=== PATIENT | female | born 1955 | race Caucasian/White ===

== ENCOUNTER 2022-12-03 08:19 | Inpatient (IN) | payer MEDICARE, MEDICAID ==
[2022-12-01 09:04] LABS: Urine WBC None Seen /hpf (0 - 5)
[2022-12-01 09:32] LABS: Basophils # (auto) 0.1 10 ^3/uL (0-0.2); Basophils % (auto) 1.2 % (0.0-2.0); Eosinophils # (auto) 0.3 10 ^3/uL (0-0.8); Eosinophils % (auto) 3.7 % (0.0-7.0); Hematocrit 37.3 % (36.0-46.0); Hemoglobin 12.7 g/dL (12.2-16.2); Lymphocytes # (auto) 1.8 10 ^3/uL (0.4-5.4); Lymphocytes % (auto) 26.1 % (10.0-50.0); Mean Corpuscular Hemoglobin 28.4 pg (28.0-32.0); Mean Corpuscular Hgb Conc. 34.2 g/dL (32.0-36.0); Mean Corpuscular Volume 83.1 fL (80.0-100.0); Monocytes # (auto) 0.4 10 ^3/uL (0-1.3); Monocytes % (auto) 6.1 % (0.0-12.0); Neutrophils # (auto) 4.3 10 ^3/uL (1.6-8.6); Neutrophils % (auto) 62.9 % (37.0-80.0); Nucleated Red Blood Cells % 0.1 %; Red Blood Cells 4.48 10^6/uL (4.0-5.20); Red Cell Distribution Width 13.3 % (11.8-14.3); White Blood Cell 6.9 10^3/uL (4.4-10.8)
[2022-12-01 09:34] LABS: Urine Bacteria NONE SEEN /hpf (None Seen); Urine Blood Negative /uL (Negative); Urine Specific Gravity 1.008 (1.001-1.035)
[2022-12-01 09:39] LABS: INR 0.97 (0.9-1.15); Partial Thromboplastin Time 28.5 sec (24.6-33.4)
[2022-12-01 10:02] LABS: Potassium 3.8 mmol/L (3.5-5.1)
[2022-12-01 10:24] LABS: Albumin 3.8 g/dL (3.4-5.0); BUN/Creatinine Ratio 11.6 (10.0-20.0); Bilirubin, Total 0.4 mg/dL (0.2-1.0); Calcium 8.8 mg/dL (8.5-10.1); Total Protein 7.3 g/dL (6.4-8.2)
[~2022-12-03] VITALS: Ht 154.9 cm; Wt 87.2 kg
[~2022-12-03 08:19] MED LIST: AMLO-496 PO; ATO40T PO; CALC667C5 PO; CHOL200021 PO; FAMO-68 PO; LOSA-39 PO; METF-489 PO; PANT40TA2 PO; VENL37.588 PO
[2022-12-03] MEDS ORDERED: ceFAZolin 1GM/50ML 100 ML IV ONE (08:28)
[2022-12-03] MEDS ORDERED: MIDAZOLAM HCL 2MG/2ML 2ml VIAL (1mg/ml) ONE (12:25)
[2022-12-03] MEDS ORDERED: HYDROmorphone HCL 2 MG/ML VL/or syr ONE (12:25)
[2022-12-03] MEDS ORDERED: fentaNYL CITRATE 100 MCG/2 ML VL ONE (12:25)
[2022-12-03] MEDS ORDERED: PROPOFOL 10 MG/ML 20 ML IV ONE (13:17)
[2022-12-03] MEDS ORDERED: SUGAMMADEX 200mg/2ml Vial (100MG/ML) IV ONE (13:58)
[2022-12-03] MEDS ORDERED: NITROGLYCERIN 0.4 MG SL TAB SL PRN (15:00)
[2022-12-03] MEDS ORDERED: ONDANSETRON HCL 4 MG/2 ML VIAL IV PRN ×2 (15:00→15:45)
[2022-12-03] MEDS ORDERED: ACETAMINOPHEN 325 MG TAB PO PRN (15:00)
[2022-12-03] MEDS ORDERED: MORPHINE SULFATE INJ 2 MG/ml SYRG IV PRN (15:00)
[2022-12-03] MEDS ORDERED: MORPHINE SULFATE 4 MG/ML SYR/VIAL IV PRN (15:45)
[2022-12-03] MEDS ORDERED: LABETALOL HCL 5 MG/ML 4ML SYRINGE IV PRN (15:45)
[2022-12-03] MEDS ORDERED: HYDROmorphone HCL 2 MG/ML VL/or syr IV PRN (15:45)
[2022-12-03] MEDS ORDERED: ePHEDrine SULFATE 50 MG/ML AMP IV PRN (15:45)
[2022-12-03] MEDS ORDERED: MIDAZOLAM HCL 2MG/2ML 2ml VIAL (1mg/ml) IV PRN (15:45)
[2022-12-03] MEDS ORDERED: HYDROcodone-ACET 10/325MG TAB PO ONE (16:45)
[2022-12-03] MEDS ORDERED: HYDROmorphone HCL 2 MG/ML VL/or syr IV ONE (16:45)
[2022-12-03] MEDS: D5W/SOD CHLO 0.9% 1,000 ML IV SCH (20:39)
[2022-12-03] MEDS: MORPHINE SULFATE INJ 2 MG/ml SYRG IV PRN (20:45)
[2022-12-03] MEDS: DOCUSATE SOD 100 MG CAP PO SCH (20:46)
[2022-12-03] MEDS: ceFAZolin 1GM/50ML 50 ML IV SCH ×2 (21:17→23:00)
[2022-12-03 22:00] VITALS: BP 125/76
[2022-12-03] MEDS: CYCLOBENZAPRINE HCL 10 MG TAB PO SCH (23:36)
[2022-12-04] MEDS: D5W/SOD CHLO 0.9% 1,000 ML IV SCH ×2 (01:00→05:00)
[2022-12-04] MEDS: MORPHINE SULFATE INJ 2 MG/ml SYRG IV PRN ×4 (01:20→21:59)
[2022-12-04 05:00] VITALS: BP 129/76
[2022-12-04] MEDS ORDERED: ceFAZolin 1GM/50ML 50 ML IV SCH (05:00)
[2022-12-04] MEDS: CYCLOBENZAPRINE HCL 10 MG TAB PO SCH ×3 (05:01→21:49)
[2022-12-04 09:00] VITALS: BP 132/81
[2022-12-04] MEDS: DOCUSATE SOD 100 MG CAP PO SCH ×2 (09:27→21:48)
[2022-12-04 13:00] VITALS: BP 164/80
[2022-12-04 17:00] VITALS: BP 158/76
[2022-12-04] MEDS: metFORMIN HYDROCHLORIDE 500 MG TAB PO SCH (17:57)
[2022-12-04] MEDS: ATORVASTATIN 20 MG TAB PO SCH (21:48)
[2022-12-04] MEDS: VENLAFAXINE HCL 37.5MG TABLET PO SCH (21:49)
[2022-12-04] MEDS: FAMOTIDINE 20 MG TAB PO SCH (21:50)
[2022-12-04 21:55] VITALS: BP 134/73
[2022-12-04] MEDS ORDERED: CALCIUM ACETATE 667 MG CAP PO SCH (22:00)
[2022-12-05] MEDS: MORPHINE SULFATE INJ 2 MG/ml SYRG IV PRN ×2 (02:42→11:18)
[2022-12-05 05:00] VITALS: BP 150/78
[2022-12-05] MEDS: CYCLOBENZAPRINE HCL 10 MG TAB PO SCH ×3 (05:03→21:02)
[2022-12-05] MEDS: metFORMIN HYDROCHLORIDE 500 MG TAB PO SCH ×2 (07:46→07:48)
[2022-12-05 09:00] VITALS: BP 137/75
[2022-12-05] MEDS ORDERED: PANTOPRAZOLE 40 MG TAB PO SCH (10:00)
[2022-12-05] MEDS: VENLAFAXINE HCL 37.5MG TABLET PO SCH ×2 (11:16→21:01)
[2022-12-05] MEDS: DOCUSATE SOD 100 MG CAP PO SCH ×2 (11:17→21:01)
[2022-12-05] MEDS: amLODIPine BESYLATE 5 MG TAB PO SCH (11:19)
[2022-12-05] MEDS: LOSARTAN POTASSIUM 50 MG TAB PO SCH (11:19)
[2022-12-05 13:00] VITALS: BP 145/74
[2022-12-05] MEDS: HYDROcodone-ACET 10/325MG TAB PO PRN (16:03)
[2022-12-05 17:04] VITALS: BP 136/81
[2022-12-05] MEDS: ATORVASTATIN 20 MG TAB PO SCH (21:01)
[2022-12-05] MEDS: FAMOTIDINE 20 MG TAB PO SCH (21:02)
[2022-12-05 22:00] VITALS: BP 118/73
[2022-12-06] MEDS: HYDROcodone-ACET 10/325MG TAB PO PRN ×3 (00:28→13:59)
[2022-12-06] MEDS: MORPHINE SULFATE INJ 2 MG/ml SYRG IV PRN (02:32)
[2022-12-06 05:00] VITALS: BP 119/73
[2022-12-06] MEDS: CYCLOBENZAPRINE HCL 10 MG TAB PO SCH ×2 (05:30→13:58)
[2022-12-06 09:23] VITALS: BP 114/75
[2022-12-06] MEDS: VENLAFAXINE HCL 37.5MG TABLET PO SCH (09:36)
[2022-12-06] MEDS: DOCUSATE SOD 100 MG CAP PO SCH (09:36)
[2022-12-06] MEDS: amLODIPine BESYLATE 5 MG TAB PO SCH (09:37)
[2022-12-06] MEDS: LOSARTAN POTASSIUM 50 MG TAB PO SCH (09:37)
[2022-12-06] MEDS: metFORMIN HYDROCHLORIDE 500 MG TAB PO SCH ×2 (09:38→18:00)
[2022-12-06] MEDS ORDERED: POLYETHYLENE GLYCOL 17 GM PWDR PO PRN (10:30)
[2022-12-06 13:00] VITALS: BP 102/65
[2022-12-06 15:45] VITALS: BP 102/65
[2022-12-06 17:12] VITALS: BP 98/67
== END 2022-12-06 17:00 | disposition home health service (06) | DRG 455 ==
LOC: SUR 08:19 → TELE 14:54 → TELE-WESTW 19:17
PROVIDERS: ADMIT Orthopaedic Surgery; ATTEND Family Medicine
PROC: 01NB0ZZ Release Lumbar Nerve, Open Approach (ICD-10-PCS; principal; 2022-12-05)
PROC: 0SG00AJ Fusion of Lumbar Vertebral Joint with Interbody Fusion Device, Posterior Approach, Anterior Column, Open Approach (ICD-10-PCS; 2022-12-05)
PROC: 4A11X4G Monitoring of Peripheral Nervous Electrical Activity, Intraoperative, External Approach (ICD-10-PCS; 2022-12-05)
PROC: 0SG0071 Fusion of Lumbar Vertebral Joint with Autologous Tissue Substitute, Posterior Approach, Posterior Column, Open Approach (ICD-10-PCS; 2022-12-05)
PROC: 00NY0ZZ Release Lumbar Spinal Cord, Open Approach (ICD-10-PCS; 2022-12-05)
DX: M48.062 Spinal stenosis, lumbar region with neurogenic claudication (principal); M51.16 Intervertebral disc disorders with radiculopathy, lumbar region; Z20.822 Contact with and (suspected) exposure to COVID-19; I10 Essential (primary) hypertension; F32.A Depression, unspecified; F41.9 Anxiety disorder, unspecified; E78.5 Hyperlipidemia, unspecified; K21.9 Gastro-esophageal reflux disease without esophagitis; E11.9 Type 2 diabetes mellitus without complications; E66.9 Obesity, unspecified; Z68.36 Body mass index [BMI] 36.0-36.9, adult
CPT/HCPCS: 36415; 72100; 76000; 80053; 81001; 82962; 85025; 85610; 85730; 86850; 86900; 86901; 97163; G0378; J0690; J2250; J2405; J2704; J7042